=== PATIENT | male | born 1995 | race Caucasian/White ===

== ENCOUNTER 2020-10-16 23:19 | Emergency (ER) | payer MEDICAID, SELFPAY ==
--- NOTE | 2020-10-16 | DI.CT_ITS ---
Exam(s) CT CHEST/ABD/PEL W CT THORACIC LUMBAR SPINE REC EXAM: CT CHEST/ABD/PEL W and CT thoracic and lumbar spine recons. CLINICAL HISTORY: trauma with spinal cord findings TECHNIQUE: Imaging Protocol: Axial computed tomography images with coronal and sagittal reformatted images were created and reviewed CONTRAST MATERIAL: Intravenous: Omnipaque 350 Contrast volume:100 mL Oral: No COMPARISON: CT CT THORACIC LUMBAR SPINE REC from 10/16/2020 FINDINGS: CHEST: Tracheobronchial tree: Patent where visualized. Pulmonary parenchyma: No consolidation or dominant measurable mass. No architectural distortion. Visualized thyroid gland: Unremarkable. Mediastinum and Marnie: No dominant adenopathy or fluid collection. There is mild soft tissue in the an terior mediastinum which likely reflects residual thymic tissue. Mediastinal contusion cannot be ent irely excluded. Pleura: No effusion or pneumothorax. Heart: The heart is not dilated. No coronary artery calcifications are seen. No pericardial effusion. Aorta: Thoracic aorta non-dilated. Lymph nodes: Within normal limits. Soft tissues: Unremarkable. Bones:There is a nondisplaced fracture of the posterior aspect of the right 1st rib. There is a mild ly displaced fracture of the spinous process of T1. Thoracic spine recons: There is a mild depression of the superior endplate of T5. This may represent an acute fracture. There is also question of mild depression deformity of the superior endplate of T4. ABDOMEN: Liver: Fatty infiltration. No measurable mass. Portal, Superior Mesenteric, and Splenic Veins: Unremarkable. Gallbladder and Biliary Tract: No radiodense calculus or dilation. Pancreas: Normal density, no abnormal calcifications or inflammatory process. Spleen: Normal. Adrenals: No masses seen. Kidneys: Normal size, contour and axis. No radiodense stones or obstructive uropathy. No masses seen. Abdominal Aorta: Abdominal portion non-dilated. Bowel: No obstruction or bowel wall thickening. Appendix is unremarkable. Peritoneal Cavity: No ascites, collection or mesenteric inflammatory response. No free air. Lymph Nodes: Within normal limits. Bones: No acute fracture. Soft Tissues: There is a small fat containing umbilical hernia. Lumbar spine recons: No acute fracture or subluxation. PELVIS: Bladder: Symmetric distention, no gross wall thickening. Reproductive Organs: Unremarkable as visualized. Lymph Nodes: Within normal limits. Bones: Within normal limits. IMPRESSION: 1. Unremarkable CT scan of the abdomen and pelvis. 2. Fracture involving the posterior aspect of the right 1st rib. Acute fracture of the T1 spinous pr ocess. 3. Superior endplate deformity of T5 suspicious for an acute fracture. 4. Question of mild depression of the superior endplate of T4 which may represent an acute fracture. 5. No acute pulmonary process. RADIATION DOSE DELIVERED: Total DLP DATA REPOSITORY: All CT scans at this facility are submitted to the National Radiology Data Registry (NRDR) Dose Index Registry (DIR) with the [employer] (ACR). RADIATION OPTIMIZATION: All CT scans at this facility use at least one of these dose optimization te chniques: automated exposure control; mA and/or kV adjustment per patient size (includes targeted exa ms where dose is matched to clinical indication); or iterative reconstruction.
--- NOTE | 2020-10-16 23:15 | DI.CT_ITS ---
Exam(s) CT HEAD CERVICAL SPINE WO EXAM: CT HEAD CERVICAL SPINE WO CLINICAL HISTORY: trauma with spinal cord findings. TECHNIQUE: Imaging Protocol: Axial computed tomography images with coronal and sagittal reformatted images were created and reviewed COMPARISON: No exams were available for comparison FINDINGS: CT Head: Ventricles and Extra axial spaces: Normal in size and morphology for the patient's age. Hemorrhage: None. Cerebral parenchyma: Normal. Midline shift: None. Brainstem/Cerebellum: Normal. Calvarium: Normal. Visualized Paranasal sinuses/Mastoids: Clear. There is a mucous retention cyst or polyp in the right maxillary sinus. Soft Tissues: Unremarkable. CT Cervical Spine: Bones: There are acute fractures through the C7 and T1 transverse processes. There is mild displacem ent of the fractures. There is also a nondisplaced fracture through the right transverse process of C6. There is otherwise normal alignment of the cervical spine. The bones are normally mineralized. Note is also made of a nondisplaced fracture through the posterior aspect of the right 1st rib. Soft Tissues: Unremarkable. Thyroid gland: Unremarkable. Lung Apices: Clear. IMPRESSION: 1. No acute intracranial process. 2. Acute fractures through the C7 and T1 spinous processes. 3. Nondisplaced fracture through the right transverse process of C6. 4. Nondisplaced posterior right 1st rib fracture. RADIATION DOSE DELIVERED: 1,845.9mGy.cm Total DLP DATA REPOSITORY: All CT scans at this facility are submitted to the National Radiology Data Registry (NRDR) Dose Index Registry (DIR) with the [employer] ([employer]CR). RADIATION OPTIMIZATION: All CT scans at this facility use at least one of these dose optimization te chniques: automated exposure control; mA and/or kV adjustment per patient size (includes targeted exa ms where dose is matched to clinical indication); or iterative reconstruction.
[2020-10-16 23:19] VITALS: BP 141/59; PULSE 87; RESP 18; TEMP 36.6; O2SAT 100
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
[2020-10-16 23:36] LABS: Abs Immature Grans 0.09 10^3/uL (0.0-0.06); Absolute Basophil Count 0.09 10^3/uL (0.0-0.2); Absolute Monocyte Count 0.75 10^3/uL (0.1-0.8); Absolute Neutrophil Count 5.75 10^3/uL (1.2-6.7); Basophils % 0.9; HGB 15.7 g/dL (13.5-17.5); Immature Grans % 0.9; MCH 33.2 pg (27.0-33.0); MCHC 34.1 % (32.0-36.0); MCV 97.3 fL (80-95); MPV 10.2 fL (8.0-11.0); Monocytes % 7.3; Neutrophils % 55.9; Nucleated RBC 0 %; Platelet Count 279 10^3/uL (130-400); RBC 4.73 10^6/uL (4.36-5.78); RDW 13.1 % (11.8-14.1); RDW-SD 47.6 fL; WBC 10.28 10^3/uL (4.4-10.8)
[2020-10-16 23:49] LABS: ALT 110 U/L (16-63); AST 99 U/L (15-37); Alkaline Phosphatase 126 U/L (46-116); Anion Gap 10.7 mmol/L (3-11); BUN 3 mg/dL (7-18); Bilirubin, Total 0.4 mg/dL (0.2-1.0); CO2 27.3 mmol/L (21.0-32.0); Calcium 8.9 mg/dL (8.5-10.1); Chloride 105 mmol/L (98-107); ETHANOL BLOOD 259.7 mg/dL (<3); Glucose 111 mg/dL (74-106); Potassium 3.8 mmol/L (3.5-5.1); Sodium 143 mmol/L (136-145); Total Protein 7.9 g/dL (6.4-8.2)
[2020-10-17] VITALS (27 sets, daily range): BP systolic 108–128; BP diastolic 48–73; PULSE 75–96; RESP 12–30; TEMP 36.6; O2SAT 94–100
[2020-10-17] MEDS: Lactated Ringers 1,000 ML 150 ML IV (00:16)
[2020-10-17 00:18] LABS: Bilirubin Negative (Negative); Blood Negative (Negative); Clarity Clear (Clear); Glucose Negative (Negative); Ketones Negative (Negative); Leukocyte Esterase Negative (Negative); Nitrite Negative (Negative); Urobilinogen 0.2 EU/dL (Up TO 0.2); pH 6.5 (5-8)
[2020-10-17 00:28] LABS: *AMPHETAMINES SCREEN URINE Negative (Negative); *BARBITURATES SCREEN URINE Negative (Negative); *BENZODIAZEPINES SCREEN URINE Negative (Negative); Cannabinoids THC Positive (Negative); Cocaine Screen,Urine Negative (Negative); METHADONE URINE SCREEN Negative (Negative); OPIATES URINE SCREEN Negative (Negative); Tricyclic Antidepressants Negative (Negative)
--- NOTE | 2020-10-17 00:40 | DI.VRAD_ITS ---
Addendum created by Garfield Tanner MD on 10/17/2020 12:45:38 AM EDT: This case was discussed personally with AYAD CHIN at 12:45 AM EDT on 10/17/2020. Initial report created on 10/17/2020 12:39:56 AM EDT: PROCEDURE INFORMATION: Exam: CT Head Without Contrast Exam date and time: 10/16/2020 11:30 PM Age: 25 years old Clinical indication: Pain; Other: Trauma with spinal cord findings; Other: Neck TECHNIQUE: Imaging protocol: Computed tomography of the head without contrast. Radiation optimization: All CT scans at this facility use at least one of these dose optimization techniques: automated exposure control; mA and/or kV adjustment per patient size (includes targeted exams where dose is matched to clinical indication); or iterative reconstruction. COMPARISON: No relevant prior studies available. FINDINGS: Brain: No acute intracranial hemorrhage, mass-effect, midline shift, or extra-axial collection is seen. The mayes white matter differentiation appears preserved. Cerebral ventricles: The ventricular system and basilar cisterns appear appropriate in size and configuration. Paranasal sinuses: Focal soft tissue density material in the right maxillary sinus has an appearance suggesting retained mucus, a mucous retention cyst, or an inflammatory polyp. Otherwise, the paranasal sinuses appear clear. Mastoid air cells: The mastoid air cells appear well-aerated. Auditory system: The middle ear cavities appear clear. Soft tissue density material within the right external auditory canal probably represents cerumen; however, direct inspection is recommended for definitive evaluation. Orbital cavity: The globes and intraorbital structures appear grossly intact. Bones/joints: The bony calvarium appears intact. No depressed skull fracture is seen. Soft tissues: No gross focal scalp hematoma is seen. IMPRESSION: No acute intracranial hemorrhage or depressed skull fracture. PROCEDURE INFORMATION: Exam: CT Cervical Spine Without Contrast Exam date and time: 10/16/2020 11:30 PM Age: 25 years old Clinical indication: Pain; Other: Trauma with spinal cord findings; Other: Neck TECHNIQUE: Imaging protocol: Computed tomography images of the cervical spine without contrast. COMPARISON: No relevant prior studies available. FINDINGS: Bones/joints: There are acute fractures through the C7 and T1 spinous processes, image 65 of series 12. There is a fracture through the tip of the right C6 transverse process, images 316-325 of series 10. No additional cervical fracture or gross vertebral malalignment is seen. There is a longitudinally oriented fracture through the medial aspect of the right 1st rib. Discs/Spinal canal/Neural foramina: No significant cervical stenosis or foraminal narrowing is demonstrated. Thyroid: The thyroid gland appears normal in size. Lungs: The lung apices appear clear. Soft tissues: Within the limits of the exam, no gross soft tissue fluid collection is seen in the neck. IMPRESSION: 1. Acute fractures through the tips of the C7 and T1 spinous processes. 2. Fracture through the tip of the right C6 transverse process. 3. Longitudinally oriented fracture through the posteromedial aspect of the right 1st rib. Dictated and Authenticated by: Garfield Tanner MD. Ordering:CHANG Powell MD
[2020-10-17 01:05] LABS: COVID-19 PCR Negative (Negative)
--- NOTE | 2020-10-17 01:22 | DI.VRAD_ITS ---
PROCEDURE INFORMATION: Exam: CT Thoracic Spine Without Contrast Exam date and time: 10/16/2020 11:32 PM Age: 25 years old Clinical indication: Trauma with spinal cord findings; Pain in thoracic spine; Other: Not known at this time TECHNIQUE: Imaging protocol: Computed tomography images of the thoracic spine without contrast. Radiation optimization: All CT scans at this facility use at least one of these dose optimization techniques: automated exposure control; mA and/or kV adjustment per patient size (includes targeted exams where dose is matched to clinical indication); or iterative reconstruction. COMPARISON: No relevant prior studies available. FINDINGS: Limitations: The spinal canal is not well evaluated due to streak artifact. Vertebrae: There is a minimally displaced fracture of the spinous process of the T1 vertebral body. Mild multilevel endplate irregularities noted in the upper thoracic spine, which may be chronic findings. There is a superior endplate deformity in the T5 vertebral body, concerning for mild acute fracture (image 71, series 7). Discs/Spinal canal/Neural foramina: No significant disc protrusion. No severe spinal canal stenosis. No significant neural foraminal narrowing. Soft tissues: Unremarkable. IMPRESSION: 1. Minimally displaced acute fracture of the T1 spinous process. 2. Likely small fracture of the superior endplate of T5, without significant loss in vertebral body height. PROCEDURE INFORMATION: Exam: CT Lumbar Spine Without Contrast Exam date and time: 10/16/2020 11:32 PM Age: 25 years old Clinical indication: Other: Trauma with spinal cord findings; Pain in thoracic spine; Other: Not known at this time TECHNIQUE: Imaging protocol: Computed tomography images of the lumbar spine without contrast. COMPARISON: No relevant prior studies available. FINDINGS: Vertebrae: Normal alignment. There is a small focus of endplate irregularity at the superior posterior endplate of L5, which could represent acute or chronic injury. Incidentally noted is sacralization of the L5 vertebral body with fusion of the L5 transverse processes the sacral ala. Discs/Spinal canal/Neural foramina: There are multilevel degenerative changes most prominent at L4-L5 with bilateral neural foraminal narrowing. No significant spinal canal stenosis identified. Soft tissues: Unremarkable. IMPRESSION: 1. Small focus of endplate irregularity at the posterior superior endplate of L5, which could represent mild acute or chronic injury. Correlate with clinical findings. 2. No significant listhesis. Dictated and Authenticated by: Aixa Cai MD. Ordering:CHANG Powell MD
[2020-10-17] MEDS: Ketorolac 30 MG/ML VIAL IVP (01:23)
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
[2020-10-17] MEDS: LORazepam 2 MG/ML VIAL 1 MG IVP (02:46)
[2020-10-17] MEDS: Omnipaque 350 MG/ML 100 ML BTL IJ (04:13)
[2020-10-17] MEDS: Normal Saline - Diluent 50 ML VIAL IV (04:14)
== END 2020-10-17 03:00 | disposition short-term general hospital (02) ==
LOC: ER 10-17 02:47
PROVIDERS: Emergency Provider Emergency Medicine; PCP Nurse Practitioner Family
DX: S12.690A Other displaced fracture of seventh cervical vertebra, initial encounter for closed fracture (principal); S22.018A Other fracture of first thoracic vertebra, initial encounter for closed fracture; S12.590A Other displaced fracture of sixth cervical vertebra, initial encounter for closed fracture; S22.31XA Fracture of one rib, right side, initial encounter for closed fracture; S22.058A Other fracture of T5-T6 vertebra, initial encounter for closed fracture; W16.022A Fall into swimming pool striking bottom causing other injury, initial encounter; F10.929 Alcohol use, unspecified with intoxication, unspecified
CPT/HCPCS: 36415; 74177; 80053; 80307; 87635; 96361; 96374; 96375; 99291; 70450; 71260; 72125; 80320; 81003; 85025; J1885; J2060; J3490

== ENCOUNTER 2020-12-21 02:44 | Outpatient (CLI) | payer MEDICAID, SELFPAY ==
--- NOTE | 2020-12-21 12:55 | DI.RAD_ITS ---
Exam(s) XR CERVICAL SP COTE TRAUMA 2-3V EXAM: XR CERVICAL SP COTE TRAUMA 2-3V CLINICAL HISTORY: F/U TRAUMA,T14.90XA,C 6 TP FX,C 7 AND T 1 FX. TECHNIQUE: 2D digital imaging was performed. COMPARISON: CT CT HEAD CERVICAL SPINE WO from 10/16/[address] HEAD CERVICAL SPINE WO from 10/16/2020 FINDINGS: BONES: On the lateral view there is again seen a displaced spinous process fracture of C7 and T1. Th ere does not appear to be significant change in alignment of the fracture components with flexion or extension. The fracture of the right transverse process of C6 is not visualized on the x-ray. Verte bral bodies are unremarkable. DISKS: Intervertebral disc spaces are maintained. ALIGNMENT: Cervical spinal alignment is within normal limits. The odontoid and atlantoaxial articulat ions are normal. SOFT TISSUE: Normal. The lung apices are clear. IMPRESSION: Stable C7 and T1 transverse process fractures. DATA REPOSITORY: RADIATION DOSE DELIVERED:
== END 2020-12-21 03:04 ==
PROVIDERS: PCP Nurse Practitioner Family; Visit Provider Physician Assistant Surgical
DX: S12.590D Other displaced fracture of sixth cervical vertebra, subsequent encounter for fracture with routine healing (principal); S12.690D Other displaced fracture of seventh cervical vertebra, subsequent encounter for fracture with routine healing; S22.018D Other fracture of first thoracic vertebra, subsequent encounter for fracture with routine healing; X58.XXXD Exposure to other specified factors, subsequent encounter
CPT/HCPCS: 72040

== ENCOUNTER 2020-12-31 12:10 | Emergency (ER) | payer MEDICAID, SELFPAY ==
[2020-12-31 12:13] VITALS: BP 147/80; PULSE 96; RESP 18; TEMP 36.7; O2SAT 100
--- NOTE | 2020-12-31 12:15 | DI.RAD_ITS ---
Exam(s) XR ANKLE LT COMPLETE EXAM: XR ANKLE LT COMPLETE CLINICAL HISTORY: pain, swelling, inverted. TECHNIQUE: 2D digital imaging was performed. COMPARISON: CR RIGHT ANKLE COMPLETE from 12/05/2009 CR,XR XR FOOT LT COMPLETE from 12/31/2020 CR,XR XR FOOT LT COMPLETE from 12/31/2020 FINDINGS: There is soft tissue swelling, more so medially than laterally. There is subtle suggestion on the AP view of a nondisplaced transverse fracture line in the lateral malleolus. No widening of the mortis e. Talar dome unremarkable. Medial malleolus and posterior malleolus appear unremarkable. IMPRESSION: Subtle suggestion of a nondisplaced transverse fracture of the lateral malleolus. Appropriate orthop edic follow-up recommended. First read by [facility]. Final report called by myself to the ER provider 12/31/2020 3:40 p .m. DATA REPOSITORY: RADIATION DOSE DELIVERED:
--- NOTE | 2020-12-31 12:15 | DI.RAD_ITS ---
Exam(s) XR FOOT LT COMPLETE EXAM: XR FOOT LT COMPLETE CLINICAL HISTORY: pain, swelling, inverted. TECHNIQUE: 2D digital imaging was performed. COMPARISON: No exams were available for comparison FINDINGS: There is no evidence of fracture or diastasis of the Eneida meredith joint. Small accessory ossicle noted lateral to the cuboid bone. Bone density normal. No radiopaque foreign body. No osseous lesions IMPRESSION: No foot fracture evident. However, please note that today's ankle films revealed a possible subtle n ondisplaced transverse fracture of the lateral malleolus. Please refer to that separate dictation. Report called by myself to the ER provider 12/31/2020 at 3:40 p.m. DATA REPOSITORY: RADIATION DOSE DELIVERED:
--- NOTE | 2020-12-31 12:23 | ED.GENADUL_ITS ---
Discharge Plan Disposition Patient Disposition: HOME Condition: Stable Discharge Details Clinical Impression: Sprain of ankle, left Primary Care Provider: Vj Mahmood ED Provider: Bruce Laboy Home Meds and New Rx's Prescriptions: No Action No Known Home Meds RF: 0 Discharge Instructions Instructions: Ankle Sprain (ED) Additional Instructions: Please use orthopedic boot and crutches. You may weight-bear as tolerated. Please take ibuprofen over the counter. Take 600mg by mouth every 6 hours as needed for pain. If pain persists greater than 1 week, please follow-up with orthopedics. Return to the ER immediately for any worsening or new concerning symptoms. Referrals: [facility] [Provider Group] Vj Mahmood, AUGER OPERATOR [Primary Care Provider] - Medical Decision Making 25-year-old male here with inversion injury to left foot, diffusely swollen ankle with tenderness with medial and lateral malleolus as well as swelling extending into the proximal dorsal foot. Patient is neurovascular intact distally. Patient took NSAID prior to arrival. Will apply ice and obtain x-ray to assess for fracture. 1321 --x-ray of the left ankle interpreted by radiology: Soft tissue swelling medially but no associated fracture. Plan to treat with orthopedic ankle boot and crutches and have him follow-up with orthopedics if pain persist. Resources were provided for COVID-19 vaccination and he was encouraged to seek vaccination as soon as possible HPI General Mode of arrival: ambulatory . Date/Time Provider Initiated Documentation: 12/31/20 12:22 . Limitations to Documentation: no limitations . Information obtained by: patient . HPI Narrative: 25-year-old male presents with chief complaint of left ankle pain. Patient notes he rolled his ankle 4 days ago and has had progressive swelling since that time. Pain is worse with ambulation. Pain is localized to diffuse ankle and also dorsal foot. No other injury. No numbness or tingling. Related Data Home Medications Medication Instructions Recorded Confirmed Unknown [No Known Home Meds] 10/16/20 10/16/20 Allergies Allergy/AdvReac Type Severity Reaction Status Date / Time shellfish derived Allergy Severe Anaphylaxis Unverified 12/31/20 12:18 General Stated Complaint: Orthopedic LILIANA: 4 Review of Systems Musculoskeletal Musculoskeletal: Reports as per HPI Neurologic Neurologic: Reports as per HPI [facility] Medical History Alcohol abuse Closed fracture of clavicle (05/20/10) Closed fracture of ulna without additional fracture Fx up radius NEC/NOS-closed (10/18/11) Influenza (01/24/09) Social anxiety disorder Surgical History No significant past surgical history Family History Family History Diabetes Social History Smoking/Tobacco Use Status: Current every day Tobacco Type: cigarettes Smoking risk assessment performed?: Yes Alcohol Intake: current Drug use: Daily Substance use type: marijuana, prescription drug and other Do you feel safe at home: Yes Do you feel safe in your relationship?: Yes Exam Const General: cooperative and no acute distress Cardio Rate: regular rate and not tachycardic Rhythm: regular rhythm Neuro General: patient alert, patient awake, patient oriented x3 and tone normal Extrem Left lower extremity: ankle Details: tenderness Location: of the lateral malleolus and anteriorly and swelling and foot Details: normal capillary refill, tenderness Location: of the dorsal foot Location: proximally, toes with normal ROM, edema, vascular exam Details: dorsalis pedis pulse present and motor- sensory exam (wiggles toes) Details: light-touch normal Course Vital Signs Vital signs: Vital Signs Temperature 36.7 C 12/31/20 12:13 Pulse 96 H 12/31/20 12:13 Respiratory Rate 18 12/31/20 12:13 Blood Pressure 147/80 H 12/31/20 12:13 Pulse Oximetry 100 12/31/20 12:13 Temperature 36.7 C 12/31/20 12:13 Temperature Source Temporal Artery Scan 12/31/20 12:13 Pulse 96 H 12/31/20 12:13 Respiratory Rate 18 12/31/20 12:13 Respiratory Effort Non-Labored 12/31/20 12:18 Blood Pressure 147/80 H 12/31/20 12:13 Blood Pressure Position Sitting 12/31/20 12:13 Pulse Oximetry 100 12/31/20 12:13 Oxygen Delivery Method Room Air 12/31/20 12:13 Oxygen Flow Rate 0 12/31/20 12:13 Pain Level 2 12/31/20 12:13 Comment 12/31/20 12:13
--- NOTE | 2020-12-31 13:19 | DI.VRAD_ITS ---
PROCEDURE INFORMATION: Exam: XR Left Foot Exam date and time: 12/31/2020 12:23 PM Age: 25 years old Clinical indication: Other: Pain swelling, inverted injury; Patient HX: Pain, swelling, inverted injury TECHNIQUE: Imaging protocol: XR Left foot. Views: 3 or more views. COMPARISON: No relevant prior studies available. FINDINGS: Bones/joints: Normal. No fracture or dislocation. No arthropathic change. Soft tissues: Normal. IMPRESSION: No acute findings. Dictated and Authenticated by: Stone Rahman MD. Ordering:ORTIZ Barrera MD
--- NOTE | 2020-12-31 13:19 | DI.VRAD_ITS ---
PROCEDURE INFORMATION: Exam: XR Left Ankle Exam date and time: 12/31/2020 12:23 PM Age: 25 years old Clinical indication: Other: Pain, swelling, inverted; Patient HX: Pain swelling, inverted injury TECHNIQUE: Imaging protocol: XR Left ankle. Views: 3 or more views. COMPARISON: CR XR FOOT LT COMPLETE 12/31/2020 12:34 FINDINGS: Bones/joints: Lateral and medial malleoli are intact with no evidence of fracture. The ankle mortise joint is normal. Soft tissues: There is some mild soft tissue swelling over the medial aspect of the ankle. IMPRESSION: Soft tissue swelling medially but with no associated fracture. Dictated and Authenticated by: Stone Rahman MD. Ordering:ORTIZ Barrera MD
== END 2020-12-31 13:44 | disposition home or self-care (01) ==
PROVIDERS: Emergency Provider Student in an Organized Health Care Education/Training Program; PCP Nurse Practitioner Family
DX: S82.492A Other fracture of shaft of left fibula, initial encounter for closed fracture (principal); X50.1XXA Overexertion from prolonged static or awkward postures, initial encounter
CPT/HCPCS: 29515; 99284; 73610; 73630; 99283

== ENCOUNTER 2021-02-14 13:29 | Outpatient (CLI) | payer MEDICAID, SELFPAY ==
--- NOTE | 2021-02-14 12:00 | DI.RAD_ITS ---
Exam(s) XR SHOULDER RT COMPLETE 2+V EXAM: XR SHOULDER RT COMPLETE 2+V CLINICAL HISTORY: Fall with injury to right shoulder, S49.91XA TECHNIQUE: COMPARISON: CR RIGHT SHOULDER COMPLETE from 05/20/2010 FINDINGS: Five views were obtained. No bony or soft tissue abnormality seen. No evidence of acute fracture or dislocation. IMPRESSION: RADIATION DOSE DELIVERED: Total DLP
== END 2021-02-14 13:49 ==
PROVIDERS: PCP Nurse Practitioner Family; Visit Provider Nurse Practitioner Family
DX: S49.91XA Unspecified injury of right shoulder and upper arm, initial encounter (principal); X58.XXXA Exposure to other specified factors, initial encounter
CPT/HCPCS: 73030

== ENCOUNTER 2021-04-29 18:05 | Emergency (ER) | payer MEDICAID, SELFPAY ==
[2021-04-29 18:11] VITALS: BP 147/77; PULSE 92; RESP 16; TEMP 36.6; O2SAT 99
--- NOTE | 2021-04-29 19:00 | ED.GENADUL_ITS ---
Discharge Plan Disposition Patient Disposition: HOME Condition: Good Discharge Details Clinical Impression: Laceration Primary Care Provider: Vj Mahmood ED Provider: Kaur Hendrix Home Meds and New Rx's Prescriptions: No Action No Known Home Meds RF: 0 Discharge Instructions Instructions: Laceration (ED), Skin Adhesive Care (ED) Additional Instructions: Keep wound clean and dry Keep it covered while at work We will likely take 7 to 10 days to heal Please return with spreading redness, fever, worsening pain Discharge Data Discharge Date/Time-TO BE ENTERED AT DEPARTURE: 04/29/21 19:33 Medical Decision Making Patient tolerated adhesive placement without incident We will keep clean and dry Return precautions discussed and patient expressed understanding Tetanus up-to-date Medical Records Medical records reviewed: Yes I reviewed the patient's medical records. Lab Data Lab results reviewed: Yes I reviewed the patient's lab results. HPI General Mode of arrival: ambulatory . Date/Time Provider Initiated Documentation: 04/29/21 19:00 . Limitations to Documentation: no limitations . Information obtained by: patient . HPI Narrative: This 25-year-old gentleman presents with laceration to left index finger which occurred at work. He states that he was slicing some turkey and he accidentally cut his finger. This occurred approximately an hour and a half prior to arrival. His tetanus is up-to-date. Denies any strength or sensation change. Related Data Home Medications Medication Instructions Recorded Confirmed Unknown [No Known Home Meds] 10/16/20 04/29/21 Allergies Allergy/AdvReac Type Severity Reaction Status Date / Time shellfish derived Allergy Severe Anaphylaxis Verified 02/14/21 11:47 Penicillins Allergy Unverified 04/29/21 18:16 General Stated Complaint: Laceration LILIANA: 4 Review of Systems Narrative: Review of systems obtained x3 and negative aside from indication in HPI PFSH All Active Problems (Updated 04/29/21 @ 19:12 by SHIN Aranda) Laceration (Acute) Right shoulder injury (Acute) Fracture of lateral malleolus of left ankle (Acute 12/27/20) Incomplete spinal cord injury (Acute) Fracture of spinous process of cervical vertebra (Acute) Fracture of spinous process of thoracic vertebra (Acute) Cervical transverse process fracture (Acute) Right rib fracture (Acute) Closed fracture of thoracic vertebral body (Acute) Alcohol intoxication (Acute) Sprain of ankle, left (Acute) Alcohol abuse (Chronic) Social anxiety disorder (Chronic) Major depression (Acute) Medical History Alcohol abuse Closed fracture of clavicle (05/20/10) Closed fracture of ulna without additional fracture Fx up radius NEC/NOS-closed (10/18/11) Influenza (01/24/09) Social anxiety disorder Surgical History No significant past surgical history Family History Family History Diabetes Social History Smoking/Tobacco Use Status: Current every day Tobacco Type: cigarettes Smoking risk assessment performed?: Yes Alcohol Intake: current Drug use: Daily Substance use type: marijuana, prescription drug and other Do you feel safe at home: Yes Do you feel safe in your relationship?: Yes Exam Extrem Other: Left index finger with 1 inch laceration to the palmar surface on his left index finger Strength and sensation are intact, range of motion is intact. Course Vital Signs Vital signs: Vital Signs Temperature 36.6 C 04/29/21 18:11 Pulse 92 H 04/29/21 18:11 Respiratory Rate 16 04/29/21 18:11 Blood Pressure 147/77 H 04/29/21 18:11 Pulse Oximetry 99 04/29/21 18:11 Temperature 36.6 C 04/29/21 18:11 Temperature Source Skin 04/29/21 18:11 Pulse 92 H 04/29/21 18:11 Respiratory Rate 16 04/29/21 18:11 Respiratory Effort 04/29/21 18:11 Blood Pressure 147/77 H 04/29/21 18:11 Blood Pressure Position Sitting 04/29/21 18:11 Pulse Oximetry 99 04/29/21 18:11 Oxygen Delivery Method Room Air 04/29/21 18:11 Oxygen Flow Rate 0 04/29/21 18:11 Pain Level 3 04/29/21 18:48 Procedures Laceration Laceration 1: Description: linear Skin layer closed with: other (dermabond) PAWSS Have you Been Recently Intoxicated or Drunk Within the Last 30 days?: Yes Have you Ever Experienced Previous Episodes of Alcohol Withdrawal?: Yes Have you ever Experienced Withdrawal Seizures?: No Have you ever Experienced Delirium Tremens(DT)s?: No Have you ever undergone Alcohol Rehabilitation Treatment (i.e, inpt ot outpatient treatment programs)?: No Have you ever Experienced Blackouts?: Yes Have you ever Combined Alcohol with other Downers within the last 90 days?: No Have you ever Combined Alcohol with any other Substance of Abuse during the last 90 days?: No Positive Blood Alcohol level on Presentation? [PCS.BAL]: No Evidence of Increased Autonomic Activity (i.e. HR>120, tremor, sweating, agitation, nausea)?: No Result: 3
== END 2021-04-29 19:33 | disposition home or self-care (01) ==
PROVIDERS: Emergency Provider Physician Assistant; PCP Nurse Practitioner Family
DX: S61.211A Laceration without foreign body of left index finger without damage to nail, initial encounter (principal); W27.8XXA Contact with other nonpowered hand tool, initial encounter; Y99.0 Civilian activity done for income or pay
CPT/HCPCS: 12002

== ENCOUNTER 2022-06-13 14:43 | Emergency (ER) | payer MEDICAID, SELFPAY ==
[2022-06-13 14:53] VITALS: BP 146/98; PULSE 99; RESP 18; TEMP 36.6; O2SAT 100
[2022-06-13 16:17] LABS: Bilirubin Small (Negative); Blood Negative (Negative); Clarity Clear (Clear); Glucose Negative (Negative); Ketones 40 mg/dL (Negative); Leukocyte Esterase Negative (Negative); Nitrite Negative (Negative); Specific Gravity 1.025 (1.005-1.025); Urobilinogen 0.2 mg/dL (Up to 0.2); pH 6.5 (5-8)
--- NOTE | 2022-06-13 16:26 | ED.GENADUL_ITS ---
Discharge Plan Disposition Patient Disposition: Home Discharge Details Clinical Impression: Alcoholic pancreatitis Primary Care Provider: Vj Mahmood ED Provider: Shahida Garcia Home Meds and New Rx's Prescriptions: New famotidine [Pepcid] 40 mg tablet 40 mg PO DAILY 14 Days Qty: 14 0RF Rx Instructions: Take 1 tablet daily for the next 2 weeks Discharge Instructions Instructions: Pancreatitis (ED) Additional Instructions: Please take the nausea medication as directed up to 3 times daily. Please take Ibuprofen with food every 4-6 hours as needed for pain and swelling. Please follow-up with your primary care doctor in the next 2 to 3 days. Please return to the ER if you feel sicker at all at any time. The CT shows moderate to severe pancreatitis and inflammation in your bowel. Please abstain from drinking alcohol as this will make it worse. Please take an antacid such as Pepcid or similar daily for the next 2 weeks. Referrals: Vj Mahmood, AMMUNITION AND EXPLOSIVES HANDLER [Primary Care Provider] - 3 days Medical Decision Making 26-year-old male presents to the ER with a chief complaint of right upper quadrant abdominal pain and vomiting. He reports this has been ongoing since last night. He denies any dysuria or burning with urination. He reports radiation into his back. He is a daily heavy drinker last drink was last night and he did have a sip this morning. He does smoke marijuana. No history of abdominal surgeries On exam patient is tender to the right upper quadrant and right lower quadrant. Work-up ordered including CBC CMP lipase and urinalysis with urine drug screen. 0.5 mg of Ativan ordered to prevent alcohol withdrawal and to help with nausea. CT abdomen pelvis without contrast ordered due to patient's shellfish allergy. Differential diagnosis includes but not limited to cholecystitis, pancreatitis, hepatitis, appendicitis, bowel obstruction or gastroenteritis. Urinalysis shows small bilirubin, no blood no leukocytes or signs of UTI [address] shows moderate proximal pancreatitis pancolitis without obstruction trace free fluid in the right retroperitoneum no abscess or free air, I did discuss the results with patient verbalized understanding I did discuss alcohol cessation with him he declined speaking with the control and recovery combat rescue at this time. He does have a history of pancreatitis per patient report. Discussed strict return instructions and I did offer admission however patient would like to be discharged home at this time. Medical Records Medical records reviewed: Yes I reviewed the patient's medical records. Lab Data Lab results reviewed: Yes I reviewed the patient's lab results. Labs: Laboratory Tests Range/Units 06/13/22 06/13/22 06/13/22 16:10 16:28 16:28 WBC (4.4-10.8) 10^3/uL 12.92 H RBC (4.36-5.78) 10^6/uL 5.10 Hgb (13.5-17.5) g/dL 16.9 Hct (40.0-50.0) % 48.8 MCV (80-95) fL 96 H MCH (27.0-33.0) pg 33.1 H MCHC (32.0-36.0) % 34.6 RDW (11.8-14.1) % 12.2 Plt Count (130-400) 10^3/uL 221 MPV (8.0-11.0) fL 10.5 Immature Gran % 0.3 Neutrophils % 80.9 Lymphocytes % 9.8 Monocytes % 8.5 Eosinophils % 0.1 Basophils % 0.4 Nucleated RBC % (0.0-0.3) % 0.0 Absolute Neutrophils (1.2-6.7) 10^3/uL 10.45 H Absolute Lymphocytes (1.2-3.4) 10^3/uL 1.27 Absolute Monocytes (0.1-0.8) 10^3/uL 1.10 H Absolute Eosinophils (0.0-0.7) 10^3/uL 0.01 Absolute Basophils (0.0-0.2) 10^3/uL 0.05 Sodium (136-145) mmol/L 137 Potassium (3.5-5.1) mmol/L 3.5 Chloride (98-107) mmol/L 102 Carbon Dioxide (21.0-32.0) mmol/L 28.3 Anion Gap (3-11) mmol/L 6.7 BUN (7-18) mg/dL 9 Creatinine (0.70-1.30) mg/dL 0.9 Est GFR (CKD-EPI 2020) (mL/min/1.73m2) 120.80 Glucose (74-106) mg/dL 124 H Calcium (8.5-10.1) mg/dL 9.7 Total Bilirubin (0.2-1.0) mg/dL 1.8 H AST (15-37) U/L 39 H ALT (16-63) U/L 67 H Alkaline Phosphatase (46-116) U/L 116 Total Protein (6.4-8.2) g/dL 8.4 H Albumin (3.4-5.0) g/dL 4.5 Lipase (16-77) U/L > 375 H Urine Color (Yellow) Yellow Urine Clarity (Clear) Clear Urine pH (5-8) 6.5 Ur Specific Polson (1.005-1.025) 1.025 Urine Protein (Negative) mg/dL 30 H Urine Ketones (Negative) mg/dL 40 H Urine Blood (Negative) Negative Urine Nitrite (Negative) Negative Urine Bilirubin (Negative) Small H Urine Urobilinogen (Up to 0.2) mg/dL 0.2 Ur Leukocyte Esterase (Negative) Negative Urine RBC (0-2) HPF 0-2 Urine WBC (0-5) HPF 3-5 Ur Epithelial Cells (Negative) HPF Rare Urine Crystals (Negative) HPF Negative Urine Bacteria (Negative) HPF Rare Urine Casts (Negative) LPF Negative Urine Mucus (Negative) Heavy Ur Culture Indicated? No Urine Glucose (Negative) mg/dL Negative Ethyl Alcohol (<10) mg/dL < 3.0 HPI General Mode of arrival: ambulatory . Date/Time Provider Initiated Documentation: 06/13/22 15:30 . Limitations to Documentation: no limitations . Information obtained by: patient, RN notes reviewed and old records reviewed . HPI Narrative: 26-year-old male presents to the ER with a chief complaint of right upper quadrant abdominal pain and vomiting. He reports this has been ongoing since last night. He denies any dysuria or burning with urination. He reports radiat ion into his back. He is a daily heavy drinker last drink was last night and he did have a sip this morning. He does smoke marijuana. No history of abdominal surgeries. Related Data Home Medications Medication Instructions Recorded Confirmed famotidine 40 mg tablet (Pepcid) 40 mg PO DAILY gerd 14 days #14 06/13/22 tabs Previous Rx's Medication Instructions Recorded famotidine 40 mg tablet (Pepcid) 40 mg PO DAILY gerd 14 days #14 06/13/22 tabs Allergies Allergy/AdvReac Type Severity Reaction Status Date / Time shellfish derived Allergy Severe Anaphylaxis Verified 06/13/22 14:53 Penicillins Allergy Unverified 06/13/22 14:53 General Stated Complaint: FlankPain LILIANA: 3 Review of Systems All systems reviewed & are unremarkable except as noted in HPI and below Constitutional Constitutional: Denies fever(s) Cardiovascular Cardiovascular: Denies chest pain Gastrointestinal Gastrointestinal: Reports as per HPI, Reports abdominal pain, Reports nausea and Reports vomiting PFSH All Active Problems (Updated 06/13/22 @ 18:33 by Shahida Garcia NP) Alcoholic pancreatitis (Acute) Right shoulder injury (Acute) Fracture of lateral malleolus of left ankle (Acute 12/27/20) Incomplete spinal cord injury (Acute) Fracture of spinous process of cervical vertebra (Acute) Fracture of spinous process of thoracic vertebra (Acute) Cervical transverse process fracture (Acute) Right rib fracture (Acute) Closed fracture of thoracic vertebral body (Acute) Alcohol intoxication (Acute) Sprain of ankle, left (Acute) Alcohol abuse (Chronic) Social anxiety disorder (Chronic) Major depression (Acute) Medical History Alcohol abuse Closed fracture of clavicle (05/20/10) Closed fracture of ulna without additional fracture Fx up radius NEC/NOS-closed (10/18/11) Influenza (01/24/09) Social anxiety disorder Surgical History No significant past surgical history Family History Family History Diabetes Social History Smoking/Tobacco Use Status: Current every day Tobacco Type: cigarettes Smoking risk assessment performed?: Yes Alcohol Intake: current Drug use: Daily Substance use type: former substance user Do you feel safe at home: Yes Do you feel safe in your relationship?: Yes Exam Narrative Exam Narrative: Constitutional: Alert and oriented x3. Appears stated age. Normal body habitus. Head: Normocephalic, no trauma. Eyes: Pupils PERRL, Red reflex noted, EOM's intact. Eyelids symmetrical without lesions, discharge, or swelling. ENT: Bilateral TM's WNL, External ear normal to inspection, no mastoid TTP, swelling, or erythema, Nasal turbinates WNL, no nasal discharge. Normal dentition, Posterior pharynx WNL, no exudate. Chest: RRR, Normal S1, S2, distal pulses intact. Resp: Lungs clear to auscultation bilaterally, no wheezes, rales, or rhonchi. Abdomen: Soft, non-distended, Normoactive bowel sounds all 4 quads. Tenderness with palpation right upper quadrant and lower quadrant. Musculoskeletal: Normal gait, 5/5 strength to all four extremities. Skin: No suspicious rashes or lesions. Capillary refill less than 2 sec. Neurologic: Cranial nerves II-XII intact. Alert and oriented x 3. Motor: No deficits noted. Sensory: Intact bilaterally all 4 extremities. Hematologic/Lymphatic: No ecchymosis, no lymphadenopathy. Course Vital Signs Vital signs: Vital Signs Temperature 36.6 C 06/13/22 14:53 Pulse 99 H 06/13/22 14:53 Respiratory Rate 18 06/13/22 14:53 Blood Pressure 146/98 H 06/13/22 14:53 Pulse Oximetry 100 06/13/22 14:53 Temperature 36.6 C 06/13/22 14:53 Temperature Source Tympanic 06/13/22 14:53 Pulse 99 H 06/13/22 14:53 Respiratory Rate 18 06/13/22 14:53 Respiratory Effort Normal, Non-Labored 06/13/22 14:52 Blood Pressure 146/98 H 06/13/22 14:53 Pulse Oximetry 100 06/13/22 14:53 Oxygen Delivery Method Room Air 06/13/22 14:53 Oxygen Flow Rate 0 06/13/22 14:53 Lab/Test Results Lab/Test Results: Laboratory Tests Range/Units 06/13/22 16:10 Urine Color (Yellow) Yellow Urine Clarity (Clear) Clear Urine pH (5-8) 6.5 Ur Specific Polson (1.005-1.025) 1.025 Urine Protein (Negative) mg/dL 30 H Urine Ketones (Negative) mg/dL 40 H Urine Blood (Negative) Negative Urine Nitrite (Negative) Negative Urine Bilirubin (Negative) Small H Urine Urobilinogen (Up to 0.2) mg/dL 0.2 Ur Leukocyte Esterase (Negative) Negative Urine Glucose (Negative) mg/dL Negative PAWSS Have you Been Recently Intoxicated or Drunk Within the Last 30 days?: Yes Have you Ever Experienced Previous Episodes of Alcohol Withdrawal?: Yes Have you ever Experienced Withdrawal Seizures?: No Have you ever Experienced Delirium Tremens(DT)s?: No Have you ever undergone Alcohol Rehabilitation Treatment (i.e, inpt ot outpatient treatment programs)?: No Have you ever Experienced Blackouts?: Yes Have you ever Combined Alcohol with other Downers within the last 90 days?: No Have you ever Combined Alcohol with any other Substance of Abuse during the last 90 days?: No Positive Blood Alcohol level on Presentation? [PCS.BAL]: No Evidence of Increased Autonomic Activity (i.e. HR>120, tremor, sweating, agitation, nausea)?: No Result: 3
[2022-06-13 16:37] LABS: Abs Immature Grans 0.04 10^3/uL (0.0-0.06); Absolute Basophil Count 0.05 10^3/uL (0.0-0.2); Absolute Eosinophil Count 0.01 10^3/uL (0.0-0.7); Basophils % 0.4; Eosinophils % 0.1; HCT 48.8 % (40.0-50.0); HGB 16.9 g/dL (13.5-17.5); Immature Grans % 0.3; Lymphocytes % 9.8; MCH 33.1 pg (27.0-33.0); MCHC 34.6 % (32.0-36.0); MCV 96 fL (80-95); MPV 10.5 fL (8.0-11.0); Monocytes % 8.5; Neutrophils % 80.9; Platelet Count 221 10^3/uL (130-400); RDW 12.2 % (11.8-14.1); RDW-SD 43.9 fL; WBC 12.92 10^3/uL (4.4-10.8)
[2022-06-13 16:41] LABS: Bacteria Rare HPF (Negative); C & S Indicated? No; Casts Negative LPF (Negative); Crystals Negative HPF (Negative); Epithelial Cells Rare HPF (Negative); Mucus Heavy (Negative); RBC 0-2 HPF (0-2)
[2022-06-13 16:42] LABS: Absolute Lymphocyte Count 1.27 10^3/uL (1.2-3.4); Absolute Neutrophil Count 10.45 10^3/uL (1.2-6.7)
[2022-06-13 17:03] LABS: ALT 67 U/L (16-63); AST 39 U/L (15-37); Albumin 4.5 g/dL (3.4-5.0); Alkaline Phosphatase 116 U/L (46-116); Anion Gap 6.7 mmol/L (3-11); BUN 9 mg/dL (7-18); Bilirubin, Total 1.8 mg/dL (0.2-1.0); CO2 28.3 mmol/L (21.0-32.0); CREATININE 0.9 mg/dL (0.70-1.30); Calcium 9.7 mg/dL (8.5-10.1); Chloride 102 mmol/L (98-107); Glucose 124 mg/dL (74-106); Potassium 3.5 mmol/L (3.5-5.1); Sodium 137 mmol/L (136-145); Total Protein 8.4 g/dL (6.4-8.2)
[2022-06-13 17:08] LABS: ETHANOL BLOOD < 3.0 mg/dL (<10); Lipase > 375 U/L (16-77)
[2022-06-13] MEDS: LORazepam 2 MG/ML VIAL 0.5 MG IVP (17:18)
[2022-06-13] MEDS: Normal Saline 1,000 ML 1000 ML IV (17:19)
[2022-06-13] MEDS: Omnipaque 350 MG/ML 100 ML BTL IJ (17:55)
[2022-06-13] MEDS: Normal Saline Flush 10 ML SYR IVP (17:58)
--- NOTE | 2022-06-13 18:00 | DI.CT_ITS ---
Exam(s) CT ABDOMEN PELVIS W EXAM: CT ABDOMEN PELVIS W CLINICAL HISTORY: RUQ abd Pain, (Allergy to shellfish), R/O Lexis TECHNIQUE: Imaging Protocol: Axial computed tomography images with coronal and sagittal reformatted images were created and reviewed CONTRAST MATERIAL: Intravenous: Omnipaque 350 Contrast volume:100 mL Oral: No COMPARISON: Comparison made with prior examinations. FINDINGS: ABDOMEN: Lung Bases: Normal where visualized. Liver: There is fatty infiltration of the liver. No measurable mass. Portal, Superior Mesenteric, and Splenic Veins: Unremarkable. Gallbladder and Biliary Tract: No radiodense calculus or dilation. Pancreas: Normal density with no abnormal calcifications. There is edema surrounding the proximal pa ncreas. Spleen: Normal. Adrenals: No masses seen. Kidneys: Normal size, contour and axis. No radiodense stones or obstructive uropathy. No masses seen. Abdominal Aorta: Abdominal portion non-dilated. Bowel: There is no obstruction. There is mild wall thickening throughout the:. Appendix is unremark able. There is edema surrounding the descending and horizontal duodenum without significant bowel wal l thickening. Peritoneal Cavity: There is a trace amount of free fluid in the right pericolic gutter. No abscess. No free air. Lymph Nodes: Within normal limits. Bones: Within normal limits for the patient's age. Soft Tissues: Unremarkable. PELVIS: Bladder: Symmetric distention, no gross wall thickening. Reproductive Organs: Unremarkable as visualized. Lymph Nodes: Within normal limits. Bones: Within normal limits for the patient's age. IMPRESSION: 1. Findings suspicious for acute pancreatitis. 2. Mild wall thickening seen in the colon which may represent a colitis. No evidence of obstruction. Please correlate clinically. 3. Right upper quadrant inflammatory stranding and a small amount of free fluid in the right pericoli c gutter. No focal fluid collection to suggest an abscess. RADIATION DOSE DELIVERED: 993.19mGy.cm Total DLP DATA REPOSITORY: All CT scans at this facility are submitted to the National Radiology Data Registry (NRDR) Dose Index Registry (DIR) with the [employer] ([employer]). RADIATION OPTIMIZATION: All CT scans at this facility use at least one of these dose optimization te chniques: automated exposure control; mA and/or kV adjustment per patient size (includes targeted exa ms where dose is matched to clinical indication); or iterative reconstruction.
--- NOTE | 2022-06-13 18:16 | DI.VRAD_ITS ---
PROCEDURE INFORMATION: Exam: CT Abdomen And Pelvis With Contrast Exam date and time: 06/13/2022 17:54 Age: 26 years old Clinical indication: Other: Ruq abd pain, R/O brendan TECHNIQUE: Imaging protocol: Computed tomography of the abdomen and pelvis with contrast. Radiation optimization: All CT scans at this facility use at least one of these dose optimization techniques: automated exposure control; mA and/or kV adjustment per patient size (includes targeted exams where dose is matched to clinical indication); or iterative reconstruction. Contrast material: OMNIPAQUE 350; Contrast volume: 100 ml; Contrast route: INTRAVENOUS (IV); COMPARISON: CT CHEST/ABD/PEL W 10/16/2020 23:48 FINDINGS: Liver: Fatty liver with no mass lesions. Gallbladder and bile ducts: Normal morphology of the gallbladder. No significant biliary dilation or radiopaque stones in the biliary tree. Pancreas: Moderate edema around the proximal pancreas. Mild pancreatic edema without mass lesions or ductal dilation. Spleen: No splenomegaly or focal lesions. Adrenal glands: No mass. Kidneys and ureters: No hydronephrosis. No renal masses. Stomach and bowel: Mild edema surrounds the descending and horizontal duodenum without significant appearing wall thickening to suggest a duodenitis. Submucosal fat deposition in the colon, likely habitus and or diet related. Moderate in severity pancolitis without obstruction. No focal pathology in the small bowel. Appendix: No evidence of appendicitis. Intraperitoneal space: See Retroperitoneal space finding. Retroperitoneal space: Trace free fluid upper right retroperitoneum and right paracolic gutter. No abscess or free air. Vasculature: No abdominal aortic aneurysm. Lymph nodes: No significantly enlarged lymph nodes. Urinary bladder: Unremarkable as visualized. Reproductive: Unremarkable as visualized. Bones/joints: No acute fracture. Soft tissues: No suspicious lesions. IMPRESSION: 1. Moderate in severity proximal pancreatitis. 2. Moderate in severity pancolitis without obstruction. 3. Additional findings as described. Dictated and Authenticated by: Sandie Saxena MD. Ordering:YVONNE Pinedo MD
[2022-06-13 18:20] VITALS: BP 156/89; PULSE 86; RESP 18; TEMP 36.4; O2SAT 100
[2022-06-13] MEDS: Ondansetron O.D.T. 4 MG TABEF, 3 TABS/BTL PO (18:38)
[2022-06-13 18:41] LABS: *AMPHETAMINES SCREEN URINE Negative (Negative); *BARBITURATES SCREEN URINE Negative (Negative); *BENZODIAZEPINES SCREEN URINE Negative (Negative); Cannabinoids THC Positive (Negative); Cocaine Screen,Urine Positive (Negative); METHADONE URINE SCREEN Negative (Negative); OPIATES URINE SCREEN Negative (Negative); Tricyclic Antidepressants Negative (Negative)
== END 2022-06-13 18:40 | disposition home or self-care (01) ==
PROVIDERS: Emergency Provider Registered Nurse Emergency; PCP Nurse Practitioner Family
DX: K85.20 Alcohol induced acute pancreatitis without necrosis or infection (principal); Z91.013 Allergy to seafood
CPT/HCPCS: 80053; 80307; 83690; 96361; 96374; 99285; 74177; 80320; 81003; 81015; 85025; 99284; J2060; J3490